=== PATIENT | female | born 1985 | race Caucasian/White ===

== ENCOUNTER 2024-03-26 12:44 | Emergency (ER) | payer OTHER ==
[~2024-03-26] VITALS: Ht 162.6 cm; Wt 133.0 kg
[2024-03-26 14:14] VITALS: BP 141/66; PULSE 98; RESP 18; TEMP 98.5; O2SAT 96
[2024-03-26] MEDS ORDERED: PROM1SOL4 PO (15:49)
[2024-03-26] MEDS ORDERED: CEPH500C PO (15:49)
== END 2024-03-26 15:51 | disposition home or self-care (01) ==
LOC: ER 12:44
DX: S93.601A Unspecified sprain of right foot, initial encounter (principal); J20.9 Acute bronchitis, unspecified; W20.8XXA Other cause of strike by thrown, projected or falling object, initial encounter; Y93.89 Activity, other specified; Y92.89 Other specified places as the place of occurrence of the external cause; Y99.8 Other external cause status
CPT/HCPCS: 71045; 73630